=== PATIENT | male | born 1990 | race African-American/Black ===

== ENCOUNTER 2019-04-20 07:57 | Emergency (ER) | payer SELFPAY ==
--- NOTE | 2019-04-20 09:12 | ER Document Report ---
ED Eye Complaint - General Chief Complaint: Eye Problem Stated Complaint: COUGH Time Seen by Provider: 04/20/19 08:50 Notes: 28-year-old male with no past medical history presents to the emergency department with chief complaint of difficulty breathing, pinkeye, coughing up too much mucus. He states his symptoms have been going on for about 3 days with the pinkeye starting yesterday. Patient says he works at [employer] and cannot go to work like this. He says the cough is productive. He denies fevers or chills, nausea, vomiting, abdominal pain, no other complaints. TRAVEL OUTSIDE OF THE [place] IN LAST 30 DAYS: No - Related Data Allergies/Adverse Reactions: shrimp Allergy (Verified 03/31/19 12:14) Past Medical History - Social History Smoking Status: Current Every Day Smoker Frequency of alcohol use: None Drug Abuse: None Family History: Reviewed & Not Pertinent Patient has suicidal ideation: No Patient has homicidal ideation: No Renal/ Medical History: Denies: Hx Peritoneal Dialysis Physical Exam - Vital signs Vitals: Temp Pulse Resp BP Pulse Ox 98.8 F 94 16 100/53 L 97 04/20/19 08:01 04/20/19 08:01 04/20/19 08:01 04/20/19 08:01 04/20/19 08:01 - Notes Notes: PHYSICAL EXAMINATION: Reviewed vital signs and charting by RN GENERAL: Well-appearing, well-nourished and in no acute distress. HEAD: Atraumatic, normocephalic. No scalp deformity, depression, or crepitance. EYES: Pupils are 3 mm and equal/round/reactive to light, extraocular movements intact, scleral injection, conjunctiva crusted with no active purulent exudate. ENT: Nares patent bilaterally, oropharynx clear without exudates or palatal petechia. Moist mucous membranes. No tonsil hypertrophy. NECK: Normal range of motion, supple without lymphadenopathy. LUNGS: Breath sounds present, equal, and clear to auscultation bilaterally. No wheezes, rales, or rhonchi. HEART: Regular rate and rhythm without murmurs, rubs, or gallops. 2+ peripheral pulses. Normal capillary refill. EXTREMITIES: Normal range of motion, no pitting or edema. No cyanosis. SKIN: Warm, dry, normal turgor, no rashes or lesions noted. Course - Re-evaluation Re-evalutation: 04/20/19 09:18 Well-appearing, symptoms consistent with conjunctivitis of the right eye. We will give him Polytrim drops here in the ER with instructions for use. Patient with a productive cough and clear lungs, I have very low suspicion for pneumonia or any pulmonary pathology at this time, most likely represents an upper respiratory infection. - Vital Signs Vital signs: Temp Pulse Resp BP Pulse Ox 98.8 F 94 16 100/53 L 97 04/20/19 08:01 04/20/19 08:01 04/20/19 08:01 04/20/19 08:01 04/20/19 08:01 Discharge - Discharge Clinical Impression: Cough Conjunctivitis Qualifiers: Conjunctivitis type: acute Acute conjunctivitis type: unspecified Laterality: left Qualified Code(s): H10.32 - Unspecified acute conjunctivitis, left eye Condition: Good Disposition: HOME, SELF-CARE Instructions: Antibiotic Therapy ([facility]), Conjunctivitis ([facility]), Eyedrop Use ([facility]) Additional Instructions: Your eye redness is likely due to a viral infection. You have been sent home with a prescription for eyedrops which you can start if your symptoms worsen or fail to improve in that time. Please return immediately if you begin to have worsening discomfort in the eyes, vision loss, swelling in the eyes, fever, or you have any other symptoms that are worrisome to you.
[2019-04-20] MEDS ORDERED: POLYMYXIN B SULFATE/TMP OPH SOLN (10 ML/ER DISP) OD PRN (09:14)
[2019-04-20] MEDS ORDERED: GUAIFENESIN 600 MG TABLET.SA PO ONE (09:14)
[2019-04-20 09:32] VITALS: BP 99/58
== END 2019-04-20 09:36 | disposition home or self-care (01) ==
LOC: ER 07:57
DX: H10.32 Unspecified acute conjunctivitis, left eye (principal); R05 Cough; F17.200 Nicotine dependence, unspecified, uncomplicated
CPT/HCPCS: 99283; J3490

== ENCOUNTER 2019-05-01 10:59 | Emergency (ER) | payer SELFPAY ==
--- NOTE | 2019-05-01 11:34 | ER Document Report ---
HPI - HPI Time Seen by Provider: 05/01/19 11:17 Pain Level: 4 Context: Patient is a 28-year-old male who presents to the emergency department with a chief complaint of a cough. He has had his cough for the past 2-1/2 weeks. He also states that he does have some shortness of breath. He does have some chest pains, but only when he coughs. He denies any fever. He has not been taking any medications to help with his symptoms. He has not seen a primary care provider in regards to this visit. - CONSTITUTIONAL Constitutional: DENIES: Fever, Chills - EENT EENT: REPORTS: Nasal Drainage-Clear, Congestion. DENIES: Sore Throat, Ear Pain, Nasal Drainage-Purulent - NEURO Neurology: DENIES: Headache - CARDIOVASCULAR Cardiovascular: DENIES: Chest pain Notes: Pain when coughing - RESPIRATORY Respiratory: REPORTS: Coughing. DENIES: Trouble Breathing - GASTROINTESTINAL Gastrointestinal: DENIES: Abdominal Pain, Nausea, Patient vomiting - MUSCULOSKELETAL Musculoskeletal: DENIES: Extremity pain - DERM Skin Color: Normal Skin Problems: None Past Medical History - Social History Smoking Status: Never Smoker Family History: Reviewed & Not Pertinent Renal/ Medical History: Denies: Hx Peritoneal Dialysis Vertical Provider Document - CONSTITUTIONAL Agree With Documented VS: Yes Exam Limitations: No Limitations General Appearance: No Apparent Distress - INFECTION CONTROL TRAVEL OUTSIDE OF THE [place] IN LAST 30 DAYS: No - HEENT HEENT: Atraumatic, Normocephalic, PERRLA - NECK Neck: Normal Inspection - RESPIRATORY Respiratory: Breath Sounds Normal, No Respiratory Distress - CARDIOVASCULAR Cardiovascular: Regular Rate, Regular Rhythm Pulses: Normal: Radial - GI/ABDOMEN Gastrointestinal: Abdomen Soft - MUSCULOSKELETAL/EXTREMETIES Musculoskeletal/Extremeties: FROM - NEURO Level of Consciousness: Awake, Alert, Appropriate - DERM Integumentary: Warm, Dry, No Rash Course - Re-evaluation Re-evalutation: 05/01/19 11:34 Due to the duration of the patient's cough, he will be sent for a chest x-ray to rule out pneumonia. 05/01/19 12:40 Patient's chest x-ray is negative for pneumonia. The patient most likely has otitis. He will be given an inhaler and a short dose of steroids to help with his bronchitis. He will follow-up with a primary care provider. He is in agreement with this plan. I will also give him cetirizine and Flonase to help with his symptoms. Verbal discharge instructions were given to the patient. They verbalized understanding. They are stable for discharge. - Vital Signs Vital signs: Temp Pulse Resp BP Pulse Ox 98.0 F 82 16 108/62 97 05/01/19 11:07 05/01/19 11:07 05/01/19 11:07 05/01/19 11:07 05/01/19 11:07 Discharge - Discharge Clinical Impression: Cough, Bronchitis Condition: Stable Disposition: HOME, SELF-CARE Additional Instructions: You are seen in the emergency department for a cough and shortness of breath. You have bronchitis. Please take the steroid that is being prescribed to you. You are also given an inhaler. You can take 1 puff every 4-6 hours as needed for shortness of breath. You are also being prescribed Flonase and cetirizine. Please use as directed. Please stop smoking, as this will not help. Please follow-up with the [facility] in regards to this visit. Prescriptions: Cetirizine HCl [All Day Allergy] 10 mg PO DAILY #30 tablet Fluticasone Propionate [Flonase Nasal Seaboard 50 Mcg/Seaboard 16 gm] 2 sprays NASL DAILY #1 inhaler Prednisone [Deltasone 20 mg Tablet] 3 tab PO DAILY 5 Days #15 tablet Forms: Return to Work, Smoking Cessation Education
--- NOTE | 2019-05-01 11:56 | RADIOLOGY REPORT (SQ) ---
EXAM DESCRIPTION: CHEST 2 VIEWS COMPLETED DATE/TIME: 05/01/2019 11:43 am REASON FOR STUDY: cough COMPARISON: None. EXAM PARAMETERS: NUMBER OF VIEWS: two views TECHNIQUE: Digital Frontal and Lateral radiographic views of the chest acquired. RADIATION DOSE: NA LIMITATIONS: none FINDINGS: LUNGS AND PLEURA: No opacities, masses or pneumothorax. No pleural effusion. MEDIASTINUM AND HILAR STRUCTURES: No masses or contour abnormalities. HEART AND VASCULAR STRUCTURES: Heart normal size. No evidence for failure. BONES: No acute findings. HARDWARE: None in the chest. OTHER: No other significant finding. IMPRESSION: No acute abnormality of the lungs. No focal airspace opacity. TECHNICAL DOCUMENTATION: JOB ID: [id number] [employer]- All Rights Reserved Reading location - IP/workstation name: [email or web address]
[2019-05-01] MEDS ORDERED: ALBUTEROL SULFATE HFA (90 MCG/PUFF) 8 GM MDI (1 MDI/ER DISP) IH PRN (12:37)
[2019-05-01 12:57] VITALS: BP 112/60
== END 2019-05-01 12:56 | disposition home or self-care (01) ==
LOC: ER 10:59
DX: J40 Bronchitis, not specified as acute or chronic (principal); R05 Cough; R06.02 Shortness of breath; R07.9 Chest pain, unspecified; R09.89 Other specified symptoms and signs involving the circulatory and respiratory systems
CPT/HCPCS: 99283; 71046; J3490

== ENCOUNTER 2019-07-13 14:50 | Emergency (ER) | payer SELFPAY ==
[2019-07-13] MEDS ORDERED: LIDOCAINE 1% INJ-PF (10 MG/ML) 30 ML SDV INJ ONE (15:31)
--- NOTE | 2019-07-13 16:42 | ER Document Report ---
ED Extremity Problem, Upper - General Chief Complaint: Laceration Stated Complaint: HAND LACERATION Time Seen by Provider: 07/13/19 15:12 Notes: Patient said he sustained a laceration to the distal tip of his right little finger and a cut on the dorsal aspect of his left wrist trying to catch a falling knife. He has only some minimal superficial abrasions on his left knee and proximal left lower leg also sustained in the fall. No other injuries. Specifically, denies any head, neck, chest, abdomen or back injuries. TRAVEL OUTSIDE OF THE [place] IN LAST 30 DAYS: No - Related Data Allergies/Adverse Reactions: shrimp Allergy (Verified 06/30/19 09:43) Past Medical History - Social History Smoking Status: Current Every Day Smoker Chew tobacco use (# tins/day): No Frequency of alcohol use: Social Drug Abuse: None Family History: Reviewed & Not Pertinent Patient has suicidal ideation: No Patient has homicidal ideation: No - Medical History Medical History: Negative Review of Systems - Review of Systems Notes: CONSTITUTIONAL : Denies fever. CARDIOVASCULAR: Denies chest pain. RESPIRATORY: Denies cough, chest congestion, or shortness of breath. GASTROINTESTINAL: Denies abdominal pain or nausea, vomiting, or diarrhea. GENITOURINARY: Denies difficulty or painful urinating, urinary frequency, blood in urine. Physical Exam - Vital signs Vitals: Temp Pulse Resp BP Pulse Ox 97.9 F 83 16 117/67 100 07/13/19 14:54 07/13/19 14:54 07/13/19 14:54 07/13/19 14:54 07/13/19 14:54 Interpretation: Normal Notes: PHYSICAL EXAMINATION: GENERAL: Well-appearing, no acute distress. HEAD: Atraumatic, normocephalic. NECK: Normal range of motion, supple. LUNGS: Breath sounds clear and equal bilaterally. HEART: Regular rate and rhythm without murmurs heard. ABDOMEN: Soft, nontender. No guarding or rebound or masses felt. Skin: Patient has a couple of superficial scratches of the proximal left lower leg on the lateral aspect. Neither of these require sutures. Patient has a 2 cm laceration on the dorsal aspect of the left wrist. It full- thickness, but not into the fatty subcutaneous tissue. No tendons noted. Additionally, patient has a 2 cm cut across the tip of his right (dominant) fifth finger which extends subcutaneously into the fat pad at the tip of the right fifth finger, palmar aspect. Extremities: Patient has full range of motion of all of these areas of injury. No deficits and nothing to indicate any tendinous structure injury. Good flexion at the DIP joint of the right fifth finger. Good extension against pressure of the left wrist. Course - Vital Signs Vital signs: Temp Pulse Resp BP Pulse Ox 98.3 F 55 L 16 127/77 H 100 07/13/19 16:42 07/13/19 16:42 07/13/19 16:42 07/13/19 16:42 07/13/19 16:42 Procedures - Laceration/Wound Repair Left Dorsal Wrist Wound length (cm): 2 Wound's Depth, Shape: Superficial, Linear. No: Into muscle Laceration pre-procedure: Sterile PPE donned, Chloraprep applied, Sterile drapes applied Anesthetic type: 1% Lidocaine Volume Anesthetic (mLs): 2 Irrigated w/ Saline (mLs): 0 Wound Debrided: 9 Wound Repaired With: Sutures Suture Size/Type: 5:0, Ethilon Number of Sutures: 1 Layer Closure?: No Post-procedure NV exam normal: Yes Hands back picture: 1 - 2 cm laceration on dorsum of right wrist, cleaned and closed with 5-0 nylon x1. Right Volar Finger 5th digit Wound length (cm): 2 Wound's Depth, Shape: Linear. No: Into muscle Laceration pre-procedure: Sterile PPE donned, Chloraprep applied, Sterile drapes applied Anesthetic type: 1% Lidocaine Volume Anesthetic (mLs): 4 Wound explored: Clean Irrigated w/ Saline (mLs): 50 Wound Debrided: Minimal - Fat trimmed Wound Repaired With: Sutures Suture Size/Type: 5:0, Ethilon Number of Sutures: 3 Layer Closure?: No Post-procedure NV exam normal: Yes Hands front picture: 1 - 2 cm cut at the tip of the right fifth finger cleaned and closed with 5-0 nylon x3. Discharge - Discharge Clinical Impression: Laceration of right little finger, Laceration of wrist, left Condition: Stable Disposition: HOME, SELF-CARE Additional Instructions: LACERATION CARE: Your laceration has been sutured to keep the skin edges aligned during healing. The time of suture removal depends on the nature and location of your cut. Please follow the care instructions the doctor has outlined for you and return for further care, according to the schedule you've been given. Keep the wound and dressing clean. Unless you were told otherwise, you may shower daily, blotting the wound dry with a clean, unused towel. At other ti mes, If the dressing gets wet or blood soaked, remove it and blot the wound dry, then reapply a new dressing. Unless you were instructed otherwise, dressings should be changed at least daily. If any signs of infection occur (swelling, redness, drainage, increasing tenderness, red streaks, tender lumps in the armpit or groin above the laceration, or fever), see the doctor immediately. SOAP CLEANSING: Gently wash the wound daily using a mild soap (like Ivory, Phisoderm, Neutrogena). Use warm water, rubbing gently until all debris, ooze, and crusting have been washed from the wound. Allow to dry briefly (about 10 minutes) after cleaning. Repeat this cleansing at least three times a day for the first two days and then once or twice a day. FOLLOW-UP CARE: Your sutures should be removed in 7 days. To facilitate a timely removal of your sutures, you may return to the Emergency Department at [facility]. You do not need to call for an appointment, but the best time to come in for suture removal is early in the morning. If you have been referred to another physician for follow-up care, call that physicians office for an appointment as you were instructed. If you experience a significant change in your laceration, or if you are concerned there may be an infection (swelling, redness, drainage, increasing tenderness, red streaks, tender lumps in the armpit or groin above the laceration, or fever), return to the Emergency Department immediately re-evaluation. Forms: Return to Work
[2019-07-13 16:43] VITALS: BP 127/77
== END 2019-07-13 17:01 | disposition home or self-care (01) ==
LOC: ER 14:50
PROC: 0HQFXZZ Repair Right Hand Skin, External Approach (ICD-10-PCS; principal; 2019-07-13)
PROC: 0HQEXZZ Repair Left Lower Arm Skin, External Approach (ICD-10-PCS; 2019-07-13)
DX: S61.411A Laceration without foreign body of right hand, initial encounter (principal); S61.512A Laceration without foreign body of left wrist, initial encounter; W26.0XXA Contact with knife, initial encounter; F17.200 Nicotine dependence, unspecified, uncomplicated
CPT/HCPCS: 12002; J3490; 99283

== ENCOUNTER 2019-09-10 09:31 | Emergency (ER) | payer SELFPAY ==
[2019-09-10] MEDS ORDERED: IPRATROPIUM/ALBUTEROL 0.5-2.5 MG/3 ML AMPUL NEB ONE (10:33)
[2019-09-10] MEDS ORDERED: PREDNISONE 20 MG TABLET PO ONE (10:33)
--- NOTE | 2019-09-10 11:18 | RADIOLOGY REPORT (SQ) ---
EXAM DESCRIPTION: CHEST SINGLE VIEW COMPLETED DATE/TIME: 09/10/2019 10:40 am REASON FOR STUDY: SOB COMPARISON: Two-view chest 05/01/2019 EXAM PARAMETERS: NUMBER OF VIEWS: One view. TECHNIQUE: Single frontal radiographic view of the chest acquired. RADIATION DOSE: NA LIMITATIONS: None. FINDINGS: LUNGS AND PLEURA: No opacities, masses or pneumothorax. No pleural effusion. MEDIASTINUM AND HILAR STRUCTURES: No masses. Contour normal. HEART AND VASCULAR STRUCTURES: Heart normal in size. Normal vasculature. BONES: No acute findings. HARDWARE: None in the chest. OTHER: No other significant finding. IMPRESSION: NO ACUTE RADIOGRAPHIC FINDING IN THE CHEST. TECHNICAL DOCUMENTATION: JOB ID: [id number] [employer]- All Rights Reserved Reading location - IP/workstation name: [email or web address]
[2019-09-10] MEDS ORDERED: ALBUTEROL SULFATE 0.083% NEB 2.5 MG/3 ML AMPUL NEB ONE (11:28)
--- NOTE | 2019-09-10 11:53 | ER Document Report ---
ED Respiratory Problem - General Chief Complaint: Shortness Of Breath Stated Complaint: COUGH,CONGESTION,WHEEZING Time Seen by Provider: 09/10/19 10:33 Primary Care Provider: [facility] [Provider Group] - Follow up in 1 week TRAVEL OUTSIDE OF THE [place] IN LAST 30 DAYS: No - HPI Notes: 28-year-old male to the emergency department with cough, chills, wheezing, shortness of breath for the past week. He states that this is been getting worse. He states he does not have a history of asthma. He states that he is a smoker. He states that he has had chills. He has not measured a fever at home. He denies any sick contacts. He admits to a slight sore throat. He also endorses nasal congestion. He denies any other complaints. - Related Data Allergies/Adverse Reactions: shrimp Allergy (Verified 06/30/19 09:43) Past Medical History - General Information source: Patient - Social History Smoking Status: Current Every Day Smoker Chew tobacco use (# tins/day): No Frequency of alcohol use: None Drug Abuse: None Family History: Reviewed & Not Pertinent Patient has suicidal ideation: No Patient has homicidal ideation: No Renal/ Medical History: Denies: Hx Peritoneal Dialysis Review of Systems - Review of Systems Constitutional: Chills, Malaise. denies: Fever EENT: Nose congestion, Throat pain Cardiovascular: denies: Chest pain, Palpitations, Heart racing, Orthopnea, Syncope, Dizziness, Lightheaded Respiratory: Cough, Short of breath, Wheezing Gastrointestinal: denies: Abdominal pain, Diarrhea, Nausea, Vomiting Genitourinary: No symptoms reported Skin: No symptoms reported Neurological/Psychological: No symptoms reported -: Yes All other systems reviewed and negative Physical Exam - Vital signs Vitals: Temp Pulse Resp BP Pulse Ox 98.0 F 76 16 117/86 H 96 09/10/19 09:35 09/10/19 09:35 09/10/19 09:35 09/10/19 09:35 09/10/19 09:35 Interpretation: Normal - General General appearance: Appears well, Alert In distress: None - HEENT Head: Normocephalic, Atraumatic Eyes: Normal Pupils: PERRL Ears: Normal External canal: Normal Tympanic membrane: Normal Sinus: Normal Nasal: Normal Mouth/Lips: Normal Pharynx: Normal, Erythema. No: Exudate, Peritonsillar abscess, Post nasal drainage, Retropharyngeal abscess, Tonsillar hypertrophy, Uvular edema, Potential airway comprom. Neck: Normal, Supple. No: Lymphadenopathy, Meningismus - Respiratory Respiratory status: No respiratory distress. No: Respiratory distress Chest status: Nontender. No: Pain on movement, Pain with cough, Pain with deep breathing, Accessory muscle use Breath sounds: Decreased air movement, Wheezing. No: Rales, Rhonchi, Stridor Chest palpation: Normal - Cardiovascular Rhythm: Regular Heart sounds: Normal auscultation Murmur: No - Abdominal Inspection: Normal Distension: No distension Bowel sounds: Normal Tenderness: Nontender Organomegaly: No organomegaly - Back Back: Normal, Nontender. No: CVA tenderness, Vertebra tenderness - Neurological Neuro grossly intact: Yes Cognition: Normal Orientation: AAOx4 Janelle Coma Scale Eye Opening: Spontaneous [place] Coma Scale Verbal: Oriented [place] Coma Scale Motor: Obeys Commands [place] Coma Scale Total: 15 Speech: Normal Motor strength normal: LUE, RUE, LLE, RLE Sensory: Normal - Psychological Associated symptoms: Normal affect, Normal mood - Skin Skin Temperature: Warm Skin Moisture: Dry Skin Color: Normal Course - Re-evaluation Re-evalutation: 09/13/19 Chest X-Ray 09/10/19 10:11 IMPRESSION: NO ACUTE RADIOGRAPHIC FINDING IN THE CHEST. Impression: Bronchitis, wheezing. Patient improved after breathing treatments and steroids. Will send home with albuterol, steroids. urged to return if worse. - Vital Signs Vital signs: Temp Pulse Resp BP Pulse Ox 97.9 F 95 16 106/57 L 97 09/10/19 12:08 09/10/19 12:08 09/10/19 12:08 09/10/19 12:08 09/10/19 12:08 - Diagnostic Test Radiology reviewed: Image reviewed, Reports reviewed Discharge - Discharge Clinical Impression: Bronchitis, Wheezing, Tobacco use Condition: Stable Disposition: HOME, SELF-CARE Instructions: Bronchitis With Bronchospasm (Wheezing) ([facility]) Additional Instructions: PUSH FLUIDS. COMPLETE STEROIDS. RETURN IF WORSENING SHORTNESS OF BREATH, CHEST PAIN, OR ANY OTHER CONCERNS. STOP SMOKING! Prescriptions: Albuterol Sulfate [Albuterol Sulfate Hfa] 2 puff IH Q4H #1 [id number].aer.[email or web address] Codeine Phosphate/Guaifenesin [Cheratussin AC Syrup] 10 ml PO Q6H #120 ml Prednisone [Deltasone 10 mg Tablet] 10 mg PO ASDIR PRN #21 tablet PRN Reason: Forms: Return to Work Referrals: [facility] [Provider Group] - Follow up in 1 week
[2019-09-10 12:09] VITALS: BP 106/57
== END 2019-09-10 12:10 | disposition home or self-care (01) ==
LOC: ER 09:31
DX: J40 Bronchitis, not specified as acute or chronic (principal); R05 Cough; R06.2 Wheezing; R68.83 Chills (without fever); R06.02 Shortness of breath; J02.9 Acute pharyngitis, unspecified; R09.81 Nasal congestion; R53.81 Other malaise; F17.200 Nicotine dependence, unspecified, uncomplicated; Z91.013 Allergy to seafood
CPT/HCPCS: 94640 ×2; 99283; 71045; J7512; J7620

== ENCOUNTER 2020-02-03 15:19 | Emergency (ER) | payer SELFPAY ==
--- NOTE | 2020-02-03 16:55 | ER Document Report ---
ED GI/ - General Chief Complaint: STD Exposure Stated Complaint: POSSIBLE STD EXPOSURE Time Seen by Provider: 02/03/20 16:46 Mode of Arrival: Ambulatory Information source: Patient Notes: 29-year-old male presented to ED because his sexual partner came to him and told him that she had either trichomoniasis or gonorrhea he is not sure which 1. He states he is having some green drainage. He states he is come in to get checked out to see if he has a problem. Patient is alert oriented respirations regular nonlabored speaking in full sentences. TRAVEL OUTSIDE OF THE [place] IN LAST 30 DAYS: No - HPI Patient complains to provider of: Other - Penile drainage Onset: Yesterday Timing/Duration: Gradual Quality of pain: No pain Pain Level: Denies Sexual history: Unprotected intercourse Associated symptoms: Penile discharge Exacerbated by: Denies Relieved by: Denies Similar symptoms previously: No Recently seen / treated by doctor: No - Related Data Allergies/Adverse Reactions: shrimp Allergy (Verified 02/03/20 16:45) Past Medical History - General Information source: Patient - Social History Smoking Status: Current Every Day Smoker Cigarette use (# per day): Yes Frequency of alcohol use: None Drug Abuse: Marijuana Family History: Reviewed & Not Pertinent Patient has suicidal ideation: No Patient has homicidal ideation: No - Past Medical History Cardiac Medical History: Reports: None Pulmonary Medical History: Reports: None EENT Medical History: Reports: None Neurological Medical History: Reports: None Renal/ Medical History: Reports: None Malignancy Medical History: Reports None GI Medical History: Reports: None Musculoskeletal Medical History: Reports None Skin Medical History: Reports None Psychiatric Medical History: Reports: None Traumatic Medical History: Reports: None Infectious Medical History: Reports: None Surgical Hx: Negative Past Surgical History: Reports: None Review of Systems - Review of Systems Constitutional: No symptoms reported EENT: No symptoms reported Cardiovascular: No symptoms reported Respiratory: No symptoms reported Gastrointestinal: No symptoms reported Genitourinary: No symptoms reported Male Genitourinary: Penile discharge Musculoskeletal: No symptoms reported Skin: No symptoms reported Hematologic/Lymphatic: No symptoms reported Neurological/Psychological: No symptoms reported Physical Exam - Vital signs Vitals: Temp Pulse Resp BP Pulse Ox 98.3 F 92 18 123/69 96 02/03/20 15:37 02/03/20 15:37 02/03/20 15:37 02/03/20 15:37 02/03/20 15:37 Interpretation: Normal - General General appearance: Appears well, Alert - HEENT Head: Normocephalic, Atraumatic Eyes: Normal Pupils: PERRL - Respiratory Respiratory status: No respiratory distress Chest status: Nontender Breath sounds: Normal Chest palpation: Normal - Cardiovascular Rhythm: Regular Heart sounds: Normal auscultation Murmur: No - Abdominal Inspection: Normal Distension: No distension Bowel sounds: Normal Tenderness: Nontender Organomegaly: No organomegaly - Genitourinary Inspection: Penile discharge - Green - Back Back: Normal, Nontender - Extremities General upper extremity: Normal inspection, Nontender, Normal color, Normal ROM, Normal temperature General lower extremity: Normal inspection, Nontender, Normal color, Normal ROM, Normal temperature, Normal weight bearing. No: Julissa's sign - Neurological Neuro grossly intact: Yes Cognition: Normal Orientation: AAOx4 [place] Coma Scale Eye Opening: Spontaneous [place] Coma Scale Verbal: Oriented [place] Coma Scale Motor: Obeys Commands Janelle Coma Scale Total: 15 Speech: Normal Motor strength normal: LUE, RUE, LLE, RLE Sensory: Normal - Psychological Associated symptoms: Normal affect, Normal mood - Skin Skin Temperature: Warm Skin Moisture: Dry Skin Color: Normal Course - Re-evaluation Re-evalutation: 02/03/20 20:21 Patient was treated with azithromycin and Rocephin. He stated that his girlfriend cheated on him with someone and then he ended up with a penile discharge and she told him that he she had gonorrhea. Patient tested positive for gonorrhea and chlamydia. He was told to call for his results tomorrow to the culture line. - Vital Signs Vital signs: Temp Pulse Resp BP Pulse Ox 97.9 F 85 16 118/77 99 02/03/20 18:41 02/03/20 18:41 02/03/20 18:41 02/03/20 18:41 02/03/20 18:41 - Laboratory Laboratory results interpreted by me: 02/03/20 02/03/20 17:20 17:20 Urine Urobilinogen 2.0 H Leukocyte Esterase Rfl LARGE H Chlamydia DNA (PCR) DETECTED H N.gonorrhoeae DNA (PCR) DETECTED H Discharge - Discharge Clinical Impression: Urethritis Condition: Stable Disposition: HOME, SELF-CARE Additional Instructions: Urethritis You have urethritis, an infection of the urethra. The usual symptoms are pain on urination and discharge. The infection is often caused by gonorrhea or chlamydia. Treatment is antibiotics. In addition, any sexual contacts should be evaluated by a physician as soon as possible. As this infection can be transmitted sexually, refrain from sexual activity until the infection is confirmed as healed by your physician. If gonorrhea or chlamydia is found on culture, the health department must be notified. Call the doctor at once if you develop difficulty passing your urine, high fever, rash, joint swelling, or other new symptoms. CEPHALOSPORINS: An antibiotic of the cephalosporin class has been prescribed. This type of antibiotic covers a wide variety of infections, including those of the skin, lungs, middle ear, and urinary tract. This antibiotic is somewhat similar to the penicillin family. In rare cases, a person who is allergic to penicillin will also be allergic to this medication. If you have had a severe allergic reaction to penicillin, and have not taken this antibiotic since that time, notify your doctor. Antibiotics which cover many germs ("broad spectrum" antibiotics) are more likely to cause diarrhea or "yeast" infections. Women prone to vaginal yeast problems may suffer an attack after taking this antibiotic. In infants, oral thrush (white spots "stuck" on the cheek) or yeast diaper rash may result. See your doctor if these problems occur. Call the doctor at once if you develop hives, itching, shortness of breath, or lightheadedness. AZITHROMYCIN: Azithromycin (Zithromax) is a broad spectrum antibiotic in the same class as erythromycin. It can treat a variety of bacterial infections, but is most frequently used for respiratory infections. Azithromycin is extremely long-lasting. It accumulates in body tissues and continues to kill bacteria for many days. In order to improve absorption, Azithromycin should be taken at least one hour before or two hours after a meal. It does not have the same strong tendency to upset the stomach as erythromycin and is usually very well tolerated. Patients who have had a rash or other true allergic reactions to erythromycin should not take this medication. Call if you develop gastrointestinal distress, severe diarrhea, rash, hives, itching, or shortness of breath. FOLLOW-UP CARE: If you have been referred to a physician for follow-up care, call the physicians office for an appointment as you were instructed or within the next two days. If you experience worsening or a significant change in your symptoms, notify the physician immediately or return to the Emergency Department at any time for re-evaluation. No sex for 7 days from today. You can call tomorrow for your report on your gonorrhea and chlamydia as I will not get the results back for at least 2 hours. The number is [phone] Forms: Smoking Cessation Education, Return to Work
[2020-02-03 17:35] LABS: BACTERIA (WET MOUNT) 3+ BACTERIA SEEN; EPITHELIALS (WET MOUNT) 3+ EPITHELIALS SEEN; T.VAGINALIS (WET MOUNT) NO TRICHOMONAS SEEN; WBCS (WET MOUNT) 2+ WBCS SEEN; YEAST (WET MOUNT) NO YEAST SEEN
[2020-02-03 17:55] LABS: APPEARANCE,URINE CLEAR; BILIRUBIN,URINE NEGATIVE (NEGATIVE); COLOR,URINE YELLOW; GLUCOSE, URINE NEGATIVE (NEGATIVE); KETONES,URINE NEGATIVE (NEGATIVE); PROTEIN,URINE NEGATIVE (NEGATIVE)
[2020-02-03] MEDS ORDERED: LIDOCAINE 1% INJ-PF (10 MG/ML) 30 ML SDV INJ ONE (18:10)
[2020-02-03] MEDS ORDERED: AZITHROMYCIN 250 MG TABLET PO ONE (18:10)
[2020-02-03] MEDS ORDERED: CEFTRIAXONE INJ 250 MG VIAL IM ONE (18:10)
[2020-02-03 18:42] VITALS: BP 118/77
[2020-02-03 19:11] LABS: CHLAM PCR DETECTED (NOT DETECT)
== END 2020-02-03 19:00 | disposition home or self-care (01) ==
LOC: ER 15:19
DX: N34.2 Other urethritis (principal); A54.9 Gonococcal infection, unspecified; A74.9 Chlamydial infection, unspecified; F12.10 Cannabis abuse, uncomplicated; F17.210 Nicotine dependence, cigarettes, uncomplicated; Z91.013 Allergy to seafood
CPT/HCPCS: 99283; 96372; 87086; 87210; 81001; 87491; 87591; J3490; J0696; 87088

== ENCOUNTER 2020-03-16 14:19 | Emergency (ER) | payer SELFPAY ==
[2020-03-16] MEDS ORDERED: ONDANSETRON HCL INJ/PF 4 MG/2 ML SDV IV ONE (14:39)
[2020-03-16] MEDS ORDERED: NORMAL SALINE 1000 ML 1,000 ML IV PRN (14:39)
--- NOTE | 2020-03-16 14:42 | ER Document Report ---
ED General - General Stated Complaint: NAUSEA,VOMITING Notes: Patient is a 29-year-old -[place] male with no significant past medical history presents to the emergency department the chief complaint of nausea and vomiting that began at 7 AM this morning. He states he drank a whole bottle of "[place]" liquor last night. States he is felt nauseous and vomited several times since awaking this morning at 7 AM. Admits to an upset stomach. Denies any overt abdominal pain. Denies any fever, chills or night sweats. No diarrhea. No difficulty with urination. No recent travel or known sick contacts. TRAVEL OUTSIDE OF THE [place] IN LAST 30 DAYS: No - Related Data Allergies/Adverse Reactions: shrimp Allergy (Verified 03/16/20 15:27) Past Medical History - Social History Smoking Status: Unknown if Ever Smoked Family History: Reviewed & Not Pertinent Renal/ Medical History: Denies: Hx Peritoneal Dialysis Review of Systems - Review of Systems Gastrointestinal: Nausea, Vomiting -: Yes All other systems reviewed and negative Physical Exam - Vital signs Vitals: Temp Pulse Resp BP Pulse Ox 97.8 F 72 16 134/79 H 100 03/16/20 15:26 03/16/20 15:26 03/16/20 15:26 03/16/20 15:26 03/16/20 15:26 - General General appearance: Alert In distress: Mild - HEENT Head: Normocephalic, Atraumatic Eyes: Normal Pupils: PERRL - Respiratory Respiratory status: No respiratory distress Chest status: Nontender Breath sounds: Normal Chest palpation: Normal - Cardiovascular Rhythm: Regular Heart sounds: Normal auscultation - Abdominal Inspection: Normal Distension: No distension Bowel sounds: Normal Tenderness: Nontender Organomegaly: No organomegaly - Neurological Neuro grossly intact: Yes Cognition: Normal Orientation: AAOx4 [place] Coma Scale Eye Opening: Spontaneous [place] Coma Scale Verbal: Oriented [place] Coma Scale Motor: Obeys Commands Janelle Coma Scale Total: 15 Speech: Normal - Psychological Associated symptoms: Normal affect, Normal mood - Skin Skin Temperature: Warm Skin Moisture: Dry Skin Color: Normal Course - Re-evaluation Re-evalutation: 03/16/20 16:02 Reevaluation at this time, patient looks and feels much better. Has no further episodes of nausea or vomiting. Lab work largely unremarkable. Will send home with Zofran in the event the nausea returns. He will follow a clear liquid diet for the next 24 hours and refrain from alcohol. Counseled him regarding the importance of outpatient follow-up and advised that he return here or any ER immediately with any new, persistent or worsening symptoms. He verbalized understood and agreed. - Vital Signs Vital signs: Temp Pulse Resp BP Pulse Ox 97.8 F 72 16 134/79 H 100 03/16/20 15:26 03/16/20 15:26 03/16/20 15:26 03/16/20 15:26 03/16/20 15:26 - Laboratory Result Diagrams: 03/16/20 14:52 03/16/20 14:52 Laboratory results interpreted by me: 03/16/20 03/16/20 14:52 14:52 Seg Neutrophils % 81.2 H Total Protein 9.1 H Discharge - Discharge Clinical Impression: Nausea with vomiting Qualifiers: Vomiting type: unspecified Vomiting Intractability: unspecified Qualified Co de(s): R11.2 - Nausea with vomiting, unspecified Condition: Stable Disposition: HOME, SELF-CARE Instructions: Nausea or Vomiting, Nonspecific ([facility]) Additional Instructions: Follow-up with your regular doctor in 2 to 3 days for reevaluation. Return here or any ER immediately with any new, persistent or worsening symptoms. Prescriptions: Ondansetron [Zofran Odt 4 mg Tablet] 4 mg PO Q8 PRN #20 tab.rapdis PRN Reason:
[2020-03-16 15:01] LABS: ABSOLUTE BASOPHILS # (AUTO) 0.1 10^3/uL (0.0-0.2); ABSOLUTE LYMPHOCYTES (AUTO) 1.2 10^3/uL (0.5-4.7); ABSOLUTE MONOCYTES (AUTO) 0.3 10^3/uL (0.1-1.4); ABSOLUTE NEUT (AUTO) 6.8 10^3/uL (1.7-8.2); BASOPHILS % (AUTO) 0.8 % (0-2); EOSINOPHILS % (AUTO) 0.3 % (0-6); HEMATOCRIT 42.5 % (37.9-51.0); HEMOGLOBIN 14.8 g/dL (13.5-17.0); LYMPHOCYTES % (AUTO) 14.6 % (13-45); MEAN CORPUSCULAR HEMOGLOBIN 30.2 pg (27.0-33.4); MEAN CORPUSCULAR HGB CONC 34.8 g/dL (32.0-36.0); MEAN CORPUSCULAR VOLUME 87 fl (80-97); MONOCYTES % (AUTO) 3.1 % (3-13); PLATELET COUNT 158 10^3/uL (150-450); RED CELL DISTRIBUTION WIDTH 13.5 % (11.5-14.0); SEGMENTED NEUTROPHILS % (AUTO) 81.2 % (42-78); TOTAL CELLS COUNTED % (AUTO) 100 %; WHITE BLOOD COUNT 8.4 10^3/uL (4.0-10.5)
[2020-03-16 15:21] LABS: ALBUMIN 4.8 g/dL (3.5-5.0); ALKALINE PHOSPHATASE 80 U/L (38-126); ANION GAP 6 (5-19); ASPARTATE AMINO TRANSFERASE 34 U/L (17-59); BILIRUBIN,TOTAL 0.5 mg/dL (0.2-1.3); BLOOD UREA NITROGEN 12 mg/dL (7-20); CALCIUM 9.5 mg/dL (8.4-10.2); CARBON DIOXIDE 29 mmol/L (22-30); CHLORIDE 104 mmol/L (98-107); GLUCOSE 98 mg/dL (75-110); POTASSIUM 3.9 mmol/L (3.6-5.0); TOTAL PROTEIN 9.1 g/dL (6.3-8.2)
[2020-03-16 16:14] VITALS: BP 134/66
== END 2020-03-16 16:15 | disposition home or self-care (01) ==
LOC: ER 14:19
DX: R11.2 Nausea with vomiting, unspecified (principal); R10.9 Unspecified abdominal pain
CPT/HCPCS: 99283; 96361; 96374; 36415; 83690; 85025; 80053; J2405; J7030